=== PATIENT | male | born 1995 | race Caucasian/White ===

== ENCOUNTER 2024-01-19 00:46 | Outpatient (CLI) | payer OTHER, SELFPAY | END 2024-01-19 00:47 | disposition home or self-care (01) | PROVIDERS: Visit Provider Family Medicine | DX: F10.129 Alcohol abuse with intoxication, unspecified (principal); R11.10 Vomiting, unspecified | CPT/HCPCS: A0425; A0427 ==

== ENCOUNTER 2024-01-19 01:26 | Emergency (ER) | payer OTHER, SELFPAY ==
[2024-01-19] VITALS (19 sets, daily range): BP systolic 122–143; BP diastolic 65–78; PULSE 79–114; RESP 14–29; TEMP 35.9; O2SAT 88–99
--- NOTE | 2024-01-19 01:50 | ED_ITS ---
HPI - General Adult General Chief complaint: Alcohol/Intoxication Stated complaint: ETOH Time Seen by Provider: 01/19/24 01:34 Source: EMS Mode of arrival: EMS Limitations: altered mental status History of Present Illness HPI narrative: 28-year-old male presents with altered mental status. No trauma or injury. Was at a family function and drink about half a bottle of Tequila and several beers tonight. He does have type 2 diabetes. He became unresponsive. There was no seizure-like activity. Patient did not fall or hit his head. He does not take any anticoagulants. The family dragged him outside. The rationale for this is unclear. Then they called 911. EMS reported that he was somewhat responsive initially and then passed back out. Cardiopulmonary status was normal. He vomited in the ambulance. He was responsive to pain. No additional history for the family. No recent illness, medications or mental health emergencies. Patient is still up tended at the time of my interview. Past medical history is notable for morbid obesity and type 2 diabetes. Medications are unknown. Heavy alcohol use tonight. He is familiar to some of the staff here in a social nature and goes by the nickname ?fluff?. ROS is unreliable in his current state but no additional was reported by EMS team. Exam Const: Vital Signs, click to edit/add: Vital Signs - 24 hr 01/19/24 01:30 01/19/24 01:31 01/19/24 01:32 Temperature Pulse Rate 89 94 101 H Pulse Rate [Pulse Oximeter] Respiratory Rate Blood Pressure 122/74 131/77 Blood Pressure [Ri ght Upper Arm] Pulse Oximetry 94 95 94 Oxygen Delivery Me thod Nasal Cannula Oxygen Flow Rate 1 01/19/24 01:39 01/19/24 01:48 01/19/24 01:50 Temperature 96.6 F L Pulse Rate 100 Pulse Rate [Pulse Oximeter] 79 Respiratory Rate 14 Blood Pressure Blood Pressure [Ri ght Upper Arm] 122/74 Pulse Oximetry 93 91 88 Oxygen Delivery Me thod Room Air Room Air Oxygen Flow Rate 01/19/24 01:50 01/19/24 02:00 01/19/24 02:02 Temperature Pulse Rate 105 H 105 H 89 Pulse Rate [Pulse Oximeter] Respiratory Rate 27 H 24 Blood Pressure 134/65 134/78 Blood Pressure [Ri ght Upper Arm] Pulse Oximetry 90 94 96 Oxygen Delivery Me thod Oxygen Flow Rate 01/19/24 02:04 01/19/24 02:04 01/19/24 02:15 Temperature Pulse Rate 99 Pulse Rate [Pulse Oximeter] Respiratory Rate 26 H Blood Pressure Blood Pressure [Ri ght Upper Arm] Pulse Oximetry 94 94 92 Oxygen Delivery Me thod Nasal Cannula Nasal Cannula Oxygen Flow Rate 1 1 01/19/24 02:17 01/19/24 02:30 01/19/24 02:32 Temperature Pulse Rate 94 102 H 114 H Pulse Rate [Pulse Oximeter] Respiratory Rate 23 26 H 29 H Blood Pressure 143/68 H 133/73 Blood Pressure [Ri ght Upper Arm] Pulse Oximetry 96 94 98 Oxygen Delivery Me thod Oxygen Flow Rate 01/19/24 02:45 01/19/24 02:46 01/19/24 03:00 Temperature Pulse Rate 99 100 94 Pulse Rate [Pulse Oximeter] Respiratory Rate 24 24 20 Blood Pressure 141/70 H Blood Pressure [Ri ght Upper Arm] Pulse Oximetry 97 97 97 Oxygen Delivery Me thod Oxygen Flow Rate 01/19/24 03:02 01/19/24 03:15 01/19/24 03:17 Temperature Pulse Rate 99 98 97 Pulse Rate [Pulse Oximeter] Respiratory Rate 24 23 22 Blood Pressure 123/71 129/74 Blood Pressure [Ri ght Upper Arm] Pulse Oximetry 99 99 98 Oxygen Delivery Me thod Oxygen Flow Rate Documenting provider has reviewed patient's vital signs: yes Exam limitations: altered mental status Other: Obese, appears stated age. Covered in vomit. Responsive to pain. O2 sats are normal on room air. No apneic spells. HENMT: Common normals: normocephalic and head/scalp atraumatic Head and scalp: normocephalic and atraumatic Face and sinus: normal facial exam Throat: posterior oropharynx normal Eye: Common normals: PERRL General eye: normal appearance of both eyes Pupil: PERRL Neck & C-Spine: General: normal visual inspection Chest: Common normals: inspection of chest normal Resp: Common normals: normal respiratory effort, no use of accessory muscles and clear to auscultation bilaterally Auscultation: clear to auscultation bilaterally Cardio: Common normals: regular rate, regular rhythm, S1 normal heart sound, S2 normal heart sound and no murmurs Rate: regular rate Rhythm: regular rhythm Heart sounds: S1 normal and S2 normal GI: Other: Obese but soft. No bruising or signs of trauma. Bowel sounds are normoactive Extremity: Common normals: normal to inspection, normal capillary refill and no pedal edema Other: No signs of trauma on arms or legs Neuro: Other: Responsive to pain only. No abnormal posturing. Pupils are equal round and reactive to light. Skin: Common normals: no rashes or lesions noted General skin exam: no rashes or lesions noted Course Course ED Course: 28-year-old diabetic male with signs of alcohol intoxication. Cannot fully exclude other etiology for altered mental status but does not bear any signs of trauma. Pupils are equal. He will respond to painful stimuli. Will obtain some basic labs including ETOH level. Give IV Zofran and wait for him to sober up. If any marked abnormalities from blood work like acidosis, elevated troponin, other abnormality, will perform further workup. Bedside blood sugar 157. Reevaluation(s) Time of Reevaluation #1: 03:51 Reevaluation #1: Patient wide awake, speaking full sentences. Able to ambulate around the room, hold down clear liquids and get himself dressed. Denies mental health issues or areas of pain. No injury or trauma reported. He admits to drinking too much alcohol, has no concerns regarding this. This is his 1st visit for similar behavior. Typical warnings and alarm symptoms are reviewed. He can call his family to get a ride home. No driving until after 10:00 a.m. due to blood alcohol levels. He verbalizes understanding and agreement. Vital Signs Vital signs: Initial Vital Signs Pulse Rate 89 01/19/24 01:30 Blood Pressure 122/74 01/19/24 01:30 Blood Pressure Mean 90 01/19/24 01:30 Pulse Oximetry 94 01/19/24 01:30 Oxygen Delivery Method Nasal Cannula 01/19/24 01:30 Oxygen Flow Rate 1 01/19/24 01:30 Vital Signs Pulse Rate 89 01/19/24 01:30 Blood Pressure 122/74 01/19/24 01:30 Pulse Oximetry 94 01/19/24 01:30 Oxygen Delivery Method Nasal Cannula 01/19/24 01:30 Oxygen Flow Rate 1 01/19/24 01:30 Temperature 96.6 F L 01/19/24 01:39 Pulse Rate 97 01/19/24 03:17 Respiratory Rate 22 01/19/24 03:17 Blood Pressure 129/74 01/19/24 03:17 Pulse Oximetry 98 01/19/24 03:17 Oxygen Delivery Method Nasal Cannula 01/19/24 02:04 Oxygen Flow Rate 1 01/19/24 02:04 Medications Administered Medications: Discontinued Medications Generic Name Dose Route Start Last Admin Trade Name Osmanq PRN Reason Stop Dose Admin Ondansetron HCl 4 mg 01/19/24 01:43 01/19/24 02:05 Ondansetron 2 Mg/Ml Inj IVP 01/19/24 01:44 4 mg ONCE ONE Administration Medical Decision Making Lab Data Lab results reviewed: Yes I reviewed the patient's lab results Lab results narrative: Labs all reassuring except very high alcohol level Labs: Lab Results 01/19/24 01/19/24 Range/Units 01:53 02:06 WBC 10.26 (4.50-11.00) K/uL RBC 5.36 (4.30-5.90) m/uL Hgb 14.6 (13.5-17.5) gm/dL Hct 44.7 (37.0-53.0) % MCV 83 (80-100) fL MCH 27 (26-34) pg MCHC 33 (32-36) gm/dL RDW Coeff of Kapil 12.9 (11.5-15.5) % Plt Count 289 (140-440) K/uL Neut % (Auto) 71.3 (42.0-72.0) % Lymph % (Auto) 22.9 (20-44) % Sargent % (Auto) 3.9 (0.0-11.0) % Eos % (Auto) 1.3 (0.0-7.0) % Baso % (Auto) 0.2 (0.0-3.0) % Neut # (Auto) 7.32 H (1.7-7.0) K/uL Lymph # (Auto) 2.35 (0.90-2.90) K/uL Sargent # (Auto) 0.40 (0.00-0.90) K/UL Eos # (Auto) 0.13 (0.00-0.50) K/uL Baso # (Auto) 0.02 (0.00-0.30) K/uL Abs Immat Gran (auto) 0.04 (0.00-0.30) K/uL Imm/Tot Granulo (auto) 0.4 % VBG pH 7.325 (7.32-7.43) VBG pCO2 42 (40-50) mmHG VBG pO2 66.3 H (25-47) mmHG VBG HCO3 22 (21-28) mmol/L Sodium 140 (135-149) mmol/L Potassium 3.4 L (3.6-5.1) mmol/L Chloride 104 (96-114) mmol/L Carbon Dioxide 21 (20-32) mmol/L Anion Gap 15 (7-15) mEq/L BUN 11 (5-24) mg/dL Creatinine 0.6 (0.5-1.5) mg/dL Estimated GFR 134 ml/min Glucose 149 H (60-115) mg/dL Lactate 2.6 H (0.5-1.9) mmol/L Calcium 9.0 (8.4-10.6) mg/dL Troponin I < 0.01 L (0.01-0.04) ng/mL Ethyl Alcohol 0.27 H (0.01-0.03) % Discharge Plan Discharge Clinical Impression: Alcoholic intoxication Patient Disposition: Home w/ Parent or Adult Condition: Improved Instructions: Alcohol Intoxication (DC) Additional Instructions: As we discussed, the episode tonight seem to be from nothing more than drinking too much alcohol. Your blood alcohol levels were more than 3 times the legal limit. This can be potentially dangerous. I do not recommend drinking this excessively in the future. No driving until after 10:00 a.m.. It is okay to use Tylenol and/or ibuprofen for headache. Drink plenty of nonalcoholic fluids today. Follow-up with her primary care doctor if you notice continued difficulty with binge drinking. Activity Level: Activity as Tolerated Discharge Diet: Regular Follow Up/Referrals: Provider,Not a Local [Primary Care Provider] - Stand Alone Forms: [place] Info Instructions
[2024-01-19 01:55] LABS: HCO3 VBG 22 mmol/L (21-28); Lactate* 2.6 mmol/L (0.5-1.9); PCO2 VBG 42 mmHG (40-50); PO2 VBG 66.3 mmHG (25-47); pH VBG 7.325 (7.32-7.43)
[2024-01-19 01:56] LABS: Basophils Absolute Auto 0.02 K/uL (0.00-0.30); Basophils Percent Auto 0.2 % (0.0-3.0); Eosinophils Absolute Auto 0.13 K/uL (0.00-0.50); Eosinophils Percent Auto 1.3 % (0.0-7.0); Hematocrit 44.7 % (37.0-53.0); Hemoglobin* 14.6 gm/dL (13.5-17.5); Immature Granulocytes Abs Auto 0.04 K/uL (0.00-0.30); Immature Granulocytes Pct Auto 0.4 %; Lymphocytes Absolute Auto 2.35 K/uL (0.90-2.90); Lymphocytes Percent Auto 22.9 % (20-44); Mean Corpuscular HGB Conc 33 gm/dL (32-36); Mean Corpuscular Hemoglobin 27 pg (26-34); Mean Corpuscular Volume 83 fL (80-100); Monocytes Percent Auto 3.9 % (0.0-11.0); Neutrophils Absolute Auto 7.32 K/uL (1.7-7.0); Neutrophils Percent Auto 71.3 % (42.0-72.0); Platelet Count* 289 K/uL (140-440); RDW Coefficient of Variation % 12.9 % (11.5-15.5); Red Blood Count 5.36 m/uL (4.30-5.90); White Blood Count* 10.26 K/uL (4.50-11.00)
[2024-01-19 02:03] LABS: Slide Review Reflex No
[2024-01-19] MEDS: ONDANSETRON 2 MG/ML inj 4 MG IVP (02:05)
[2024-01-19 02:10] LABS: Chloride* 104 mmol/L (96-114); Potassium* 3.4 mmol/L (3.6-5.1); Sodium* 140 mmol/L (135-149)
[2024-01-19 02:13] LABS: Anion Gap 15 mEq/L (7-15); Carbon Dioxide* 21 mmol/L (20-32); Creatinine* 0.6 mg/dL (0.5-1.5); Estimated Glomerular Filt Rate 134 ml/min
[2024-01-19 02:14] LABS: Blood Urea Nitrogen* 11 mg/dL (5-24); Ethanol* 0.27 % (0.01-0.03); Glucose* 149 mg/dL (60-115)
[2024-01-19 02:26] LABS: Troponin I* < 0.01 ng/mL (0.01-0.04)
== END 2024-01-19 04:48 | disposition home or self-care (01) ==
PROVIDERS: Emergency Provider Family Medicine
DX: F10.129 Alcohol abuse with intoxication, unspecified (principal)
CPT/HCPCS: 36415; 80048; 80306; 81003; 82077; 82803; 83605; 84484; 85025; 96374; 99284; J2405